=== PATIENT | female | born 1960 | race Caucasian/White ===

== ENCOUNTER 2017-10-18 18:05 | Observation (INO) ==
[2017-10-18] MEDS ORDERED: ONDANSETRON 4 MG/2 ML VIAL IV STA (20:25)
[2017-10-18] MEDS ORDERED: ALUM/MAG/SIMETH/LIDO VISC 1:1 30 ML BOTTLE PO STA (20:25)
[2017-10-18] MEDS ORDERED: MORPHINE 4 MG/1 ML VIAL IV STA (20:25)
[2017-10-18] MEDS ORDERED: NITROGLYCERIN 2% OINT 1 INCH/GM PACK TOP STA (20:25)
[2017-10-18] MEDS ORDERED: ASPIRIN 325 MG TABLET PO STA (20:25)
[2017-10-18 20:33] LABS: Basophils # 0.1 10*3/uL (0.0-0.2); Basophils % 0.6 % (0.0-0.8); Eosinophils # 0.4 10*3/uL (0.0-0.87); Eosinophils % 3.5 % (0.00-10.9); Hematocrit 42.3 VOL% (35.7-47.0); Hemoglobin 13.8 GM/DL (12.0-16.0); Immature Granulocytes % 0.5 %; Immature Granulocytes Absolute 0.05 #; Lymphocytes # 1.9 10*3/uL (1.4-4.0); Lymphocytes % 17.6 % (21.3-54.2); Mean Corpuscular HGB Conc 32.6 GM/DL (32-36); Mean Corpuscular Hemoglobin 29 PG (27-34); Mean Corpuscular Volume 87.6 FL (87-102); Mean Platelet Volume 10.8 FL (9.6-12.0); Monocytes # 0.9 10*3/uL (0.11-0.8); Monocytes % 7.8 % (1.7-12.7); Neutrophils # 7.7 10*3/uL (1.4-7.4); Platelet Count 223 T/CUMM (130-400); Red Blood Count 4.83 MC/CUMM (3.8-5.5); Red Cell Distribution Width 12.8 % (9.3-17.3)
[2017-10-18 20:42] LABS: INR 0.9; PT Patient Result 9.8 SECS
[2017-10-18 21:21] LABS: Alanine Aminotransferase 40 U/L (13-56); Albumin 4.3 G/DL (3.4-5.0); Alkaline Phosphatase 78 U/L (45-117); Aspartate Amino Transferase 22 U/L (0-37); Bilirubin,Total < 0.39 MG/DL (0.2-1.0); Blood Urea Nitrogen 18 MG/DL (7-18); Glucose 83 MG/DL (74-106); Osmolality,Calculated 279.4 MOS/KG (273-304); Potassium 3.9 MMOL/L (3.5-5.1); Sodium 140 MMOL/L (136-145); Total Protein 7.1 G/DL (6.4-8.3)
[2017-10-18] MEDS ORDERED: ACETAMINOPHEN 325 MG TABLET PO PRN (23:30)
[2017-10-18] MEDS ORDERED: MORPHINE 4 MG/1 ML VIAL IV PRN (23:30)
[2017-10-18] MEDS ORDERED: ONDANSETRON 4 MG/2 ML VIAL IV PRN (23:30)
[2017-10-18] MEDS ORDERED: Eletriptan Hbr [Relpax] 40 MG PO PRN (23:33)
[2017-10-18] MEDS ORDERED: NITROGLYCERIN SL 0.4 MG TABLET SL PRN (23:33)
[2017-10-18] MEDS ORDERED: GABAPENTIN 300 MG CAPSULE PO SCH (23:45)
[2017-10-19 01:44] LABS: Basophils # 0.1 10*3/uL (0.0-0.2); Basophils % 0.8 % (0.0-0.8); Eosinophils # 0.4 10*3/uL (0.0-0.87); Eosinophils % 4.5 % (0.00-10.9); Hematocrit 39.5 VOL% (35.7-47.0); Immature Granulocytes % 0.3 %; Immature Granulocytes Absolute 0.03 #; Lymphocytes # 2.6 10*3/uL (1.4-4.0); Lymphocytes % 29.3 % (21.3-54.2); Mean Corpuscular HGB Conc 32.9 GM/DL (32-36); Mean Corpuscular Hemoglobin 28 PG (27-34); Mean Corpuscular Volume 86.1 FL (87-102); Mean Platelet Volume 10.3 FL (9.6-12.0); Monocytes # 0.9 10*3/uL (0.11-0.8); Monocytes % 9.9 % (1.7-12.7); Neutrophils # 4.9 10*3/uL (1.4-7.4); Neutrophils % 55.2 % (38.7-73.9); Platelet Count 195 T/CUMM (130-400); Red Blood Count 4.59 MC/CUMM (3.8-5.5); Red Cell Distribution Width 12.8 % (9.3-17.3); White Blood Count 8.9 T/CUMM (4-12)
[2017-10-19 02:21] LABS: Calcium 8.7 MG/DL (8.5-10.1); Osmolality,Calculated 280.4 MOS/KG (273-304); Potassium 3.6 MMOL/L (3.5-5.1); Risk Ratio 3.11; Thyroid Stimulating Hormone 4.55 uIU/ml (0.358-3.74); VLDL CHOLESTEROL 18.8 MG/DL
[2017-10-19] MEDS: SPIRONOLACTONE 25 MG TABLET PO SCH ×2 (02:48→09:09)
[2017-10-19] MEDS: buPROPion SR 150 MG TABLET PO SCH ×2 (02:48→09:09)
[2017-10-19] MEDS ORDERED: LEVOTHYROXINE 112 MCG TABLET PO SCH (06:00)
[2017-10-19] MEDS ORDERED: PRAVASTATIN 20 MG TABLET PO SCH (09:00)
[2017-10-19] MEDS ORDERED: PANTOPRAZOLE 40 MG TABLET PO SCH (09:00)
[2017-10-19] MEDS ORDERED: ENOXAPARIN 40 MG/0.4 ML SYRINGE SUBCUT SCH (09:00)
[2017-10-19] MEDS ORDERED: LOSARTAN 50 MG TABLET PO SCH (09:00)
[2017-10-19 11:38] VITALS: BP 110/72
== END 2017-10-19 13:35 | disposition home or self-care (01) ==
LOC: N.ED 18:05 → N.EDINP 18:05 → N.TELEN 10-19 00:42
PROVIDERS: ADMIT Internal Medicine; ATTEND Internal Medicine